=== PATIENT | male | born 1945 | race Caucasian/White ===

== ENCOUNTER 2017-12-06 21:18 | Emergency (ER) | payer OTHER ==
[2017-12-06] MEDS ORDERED: ACETAMINOPHEN 500 MG TAB ONE (23:14)
[2017-12-06] MEDS ORDERED: NA CHLORIDE 0.9% 1,000 ML ONE (23:14)
[2017-12-06 23:18] LABS: Absolute Lymphocytes (CBC) 0.8 K/uL (0.7-4.9); Absolute Monocytes 0.8 K/uL (0.1-1.3); Absolute Neutrophil 5.4 K/uL (1.8-8.0); Basophils % 0.4 % (0-1.3); Eosinophils % 0.1 % (0-4.4); Hematocrit 41.5 % (39.6-49.0); Lymphocytes % 11.4 % (15.3-44.8); MCH 32.3 pg (27.0-35.0); MCV 94.3 fL (80-100); MPV 8.5 fL (7.6-11.3)
[2017-12-06 23:23] LABS: Urine Blood 2+ (NEG); Urine Glucose NEGATIVE (NEG); Urine Protein TRACE (NEG); Urine Specific Gravity 1.015 (1.005-1.030); Urine pH 5.5 (5.0-7.0)
[2017-12-06 23:32] LABS: Potassium 3.6 mEq/L (3.6-5.0)
[2017-12-06 23:39] LABS: Albumin 3.9 g/dL (3.2-5.5); Bilirubin Direct 0.5 mg/dL (0-0.2)
[2017-12-07 00:05] LABS: Urine Bacteria <20 /HPF (NONE SEEN); Urine Culture Reflex Order REFLEXED; Urine Mucus 1+ /HPF (NONE SEEN); Urine RBC <5 /HPF (NONE SEEN)
[2017-12-07] MEDS ORDERED: CEFTRIAXONE/SWI 1gm 1 GM/10 ML SYR ONE (02:54)
--- NOTE | 2017-12-07 02:58 | EDPHYS ---
Physician Documentation [facility] Name: Paulino Ragsdale Age: 72 yrs Sex: Male : 1945 Arrival Date: 12/06/2017 Time: 21:25 Bed 20 Private MD: ED Physician Camilo Proctor HPI: 12/06 23:00 This 72 yrs old Male presents to ER via Ambulatory with complaints of Flank pm1 Pain, Fever. 23:00 The patient complains of pain in the left low back and right low back. The pain does pm1 not radiate. Onset: The symptoms/episode began/occurred 4 day(s) ago. Modifying factors: The symptoms are alleviated by nothing. the symptoms are aggravated by nothing. Associated signs and symptoms: Pertinent positives: fever, headache, Pertinent negatives: nausea, vomiting. Severity of pain: in the emergency department the pain is actually worse. The patient has experienced similar episodes in the past, a few times. The patient has not recently seen a physician. patient with bilateral flank pain and low grade fevers. symptoms feel like prior urinary tract infections. Patient with headache present when his fevers return after administration of antipyretics. No nausea, vomiting, diarrhea. No cough, sore throat, or earache. Historical: - Allergies: 22:21 No Known Allergies; jd3 - Home Meds: 22:21 atorvastatin oral oral [Active]; Plavix Oral [Active]; losartan oral oral [Active]; jd3 aspirin 81 mg Oral chew 1 tab once daily [Active]; - PMHx: 22:21 CVA; prostate cancer; High Cholesterol; Hypertension; jd3 - PSHx: 22:21 Prostate; Appendectomy; right hip surgery; jd3 - Immunization history:: Adult Immunizations up to date. - Social history:: Smoking status: Patient/guardian denies using tobacco, the patient reports quitting approximately 17 years ago. - Ebola Screening: : No symptoms or risks identified at this time. ROS: 23:00 Eyes: Negative for injury, pain, redness, and discharge, ENT: Negative for injury, pm1 pain, and discharge, Neck: Negative for injury, pain, and swelling, Cardiovascular: Negative for chest pain, palpitations, and edema, Respiratory: Negative for shortness of breath, cough, wheezing, and pleuritic chest pain, Abdomen/GI: Negative for abdominal pain, nausea, vomiting, diarrhea, and constipation. 23:00 : Negative for injury, bleeding, discharge, and swelling, MS/Extremity: Negative for injury and deformity, Skin: Negative for injury, rash, and discoloration. 23:00 Constitutional: Positive for fever, Negative for poor PO intake. 23:00 Back: Positive for flank pain, bilaterally, Negative for radiated pain. Exam: 23:00 Constitutional: This is a well developed, well nourished patient who is awake, alert, pm1 and in no acute distress. Head/Face: Normocephalic, atraumatic. Eyes: Pupils equal round and reactive to light, extra-ocular motions intact. Lids and lashes normal. Conjunctiva and sclera are non-icteric and not injected. Cornea within normal limits. Periorbital areas with no swelling, redness, or edema. ENT: Nares patent. No nasal discharge, no septal abnormalities noted. Tympanic membranes are normal and external auditory canals are clear. Oropharynx with no redness, swelling, or masses, exudates, or evidence of obstruction, uvula midline. Mucous membranes moist. Neck: Trachea midline, no thyromegaly or masses palpated, and no cervical lymphadenopathy. Supple, full range of motion without nuchal rigidity, or vertebral point tenderness. No Meningismus. Chest/axilla: Normal chest wall appearance and motion. Nontender with no deformity. No lesions are appreciated. Cardiovascular: Regular rate and rhythm with a normal S1 and S2. No gallops, murmurs, or rubs. No pulse deficits. Respiratory: Lungs have equal breath sounds bilaterally, clear to auscultation and percussion. No rales, rhonchi or wheezes noted. No increased work of breathing, no retractions or nasal flaring. Abdomen/GI: Soft, non-tender, with normal bowel sounds. No distension or tympany. No guarding or rebound. No evidence of tenderness throughout. Skin: Warm, dry with normal turgor. Normal color with no rashes, no lesions, and no evidence of cellulitis. MS/ Extremity: Pulses equal, no cyanosis. Neurovascular intact. Full, normal range of motion. 23:00 Back: pain, that is mild, of the left low back and right low back, vertebral tenderness, is not appreciated. 23:00 Neuro: Orientation: is normal, Mentation: is normal, Cranial nerves: CN II- XII are normal as tested, Cerebellar function: Motor: moves all fours, strength is 5/5 in all extremities, Sensation: is normal, no obvious gross deficits. Vital Signs: 22:21 BP 169 / 75; Pulse 100; Resp 20 S; Temp 100.9(O); Pulse Ox 95% on R/A; Weight 105.23 kg jd3 (R); Height 5 ft. 7 in. (170.18 cm) (R); Pain 3/10; 23:52 BP 158 / 74; Pulse 96; Resp 18 S; Temp 101.2(O); Pulse Ox 95% on R/A; Pain 0/10; jd3 12/07 00:33 BP 164 / 74; Pulse 90; Resp 18 S; Pulse Ox 95% on R/A; jd3 00:54 BP 164 / 74; Pulse 90; Resp 18 S; Temp 100.3(O); Pulse Ox 95% on R/A; jd3 02:22 BP 151 / 67; Pulse 87; Resp 17 S; Pulse Ox 95% on R/A; d3 12/06 22:21 Body Mass Index 36.34 (105.23 kg, 170.18 cm) jd3 MDM: 12/06 22:49 Patient medically screened. pm1 12/07 02:54 Data reviewed: vital signs. Data interpreted: Pulse oximetry: on room air is 95 %. pm1 Interpretation: normal. Counseling: I had a detailed discussion with the patient and/or guardian regarding: the historical points, exam findings, and any diagnostic results supporting the discharge/admit diagnosis, lab results, radiology results, the need for outpatient follow up, to return to the emergency department if symptoms worsen or persist or if there are any questions or concerns that arise at home. 02:54 ED course: pending urine culture in 2 days. pm1 02:59 ED course: Patient reports feeling the same way that he had a prior urinary tract pm1 infection. Flank pain with fever and UTI only diagnosed when the culture came back. Patient would like antibiotic therapy. will discharge patient home with Augmentin after administering Rocephin and pending urine cutlrue. 12/06 22:50 Order name: Basic Metabolic Panel; Complete Time: 02:04 pm1 12/06 22:50 Order name: CBC with Diff; Complete Time: 02:04 pm1 12/06 22:50 Order name: Creatinine for Radiology; Complete Time: 02:04 pm1 12/06 22:50 Order name: Hepatic Function; Complete Time: 02:04 pm1 12/06 22:50 Order name: Lipase; Complete Time: 02:04 pm1 12/06 22:50 Order name: Urine Microscopic Only pm1 12/06 22:50 Order name: CT Head Brain wo Cont pm1 12/06 22:50 Order name: IV Saline Lock; Complete Time: 23:11 pm1 12/06 22:50 Order name: CT Abd/Pelvis - W/Contrast 1 12/06 23:17 Order name: Urine Dipstick--Ancillary (enter results); Complete Time: 02:04 2 12/07 00:11 Order name: Urine Culture [facility] 12/06 22:50 Order name: Labs collected and sent; Complete Time: 23:11 pm1 12/06 22:50 Order name: Urine Dipstick-Ancillary (obtain specimen); Complete Time: 23:19 pm1 Administered Medications: 12/06 23:19 Drug: Tylenol 1000 mg Route: PO; [facility] 12/07 03:17 Follow up: Response: No adverse reaction; Temperature is decreased [facility] 12/06 23:19 Drug: NS 0.9% 1000 ml Route: IV; Rate: 1000 ml; Site: right antecubital; [facility] 12/07 03:17 Follow up: Response: No adverse reaction; IV Status: Completed infusion; IV Intake: jd3 1000ml 03:03 Drug: Rocephin 1 grams Route: IV; Rate: calculated rate; Site: right antecubital; [facility] 03:16 Follow up: Response: No adverse reaction; IV Status: Completed infusion j Disposition: 12/07/17 02:57 Discharged to Home. Impression: Urinary tract infection, site not specified. - Condition is Stable. - Discharge Instructions: Urinary Tract Infection, Antibiotic Medication. - Prescriptions for Augmentin 875- 125 mg Oral Tablet - take 1 tablet by ORAL route every 12 hours for 10 days; 20 tablet. - Medication Reconciliation Form, Thank You Letter, Antibiotic Education form. - Follow up: Emergency Department; When: As needed; Reason: Worsening of condition. Follow up: Private Physician; When: 2 - 3 days; Reason: Recheck today's complaints, Continuance of care, Re-evaluation by your physician. - Problem is new. - Symptoms have improved. Addendum: 12/09/2017 09:30 Co-signature as Attending Physician, Camilo Proctor MD I agree with the assessment and c walker plan of care. Signatures: Dispatcher [employer] EDWV Camilo Proctor MD MD cha Marinas, Patrick, GUARD DRIVER GUARD DRIVER pm1 Alek Portillo, RN RN jd3 Corrections: (The following items were deleted from the chart) 12/07 03:17 02:57 12/07/2017 02:57 Discharged to Home. Impression: Urinary tract infection, site jd3 not specified. Condition is Stable. Forms are Medication Reconciliation Form, Thank You Letter, Antibiotic Education, Prescription Opioid Use. Follow up: Emergency Department; When: As needed; Reason: Worsening of condition. Follow up: Private Physician; When: 2 - 3 days; Reason: Recheck today's complaints, Continuance of care, Re-evaluation by your physician. Problem is new. Symptoms have improved. pm1
--- NOTE | 2017-12-07 02:58 | ER ---
Nurse's Notes [facility] Name: Paulino Ragsdale Age: 72 yrs Sex: Male : 1945 Arrival Date: 12/06/2017 Time: 21:25 Bed 20 Private MD: Diagnosis: Urinary tract infection, site not specified Presentation: 12/06 22:08 Presenting complaint: Patient states: "I have been having fever since Friday jd3 accompanied by a cough and migraines. I am worried about the migraines because they triggered my previous stroke. I just haven't been able to shake this fever that has also been given meets sweats at night and a cough. I also think I might have a UTI or kidney problem because I am having some blood in my urine.". Transition of care: patient was not received from another setting of care. Onset of symptoms was December 03, 2017. Risk Assessment: Do you want to hurt yourself or someone else? Patient reports no desire to harm self or others. Initial Sepsis Screen: Does the patient meet any 2 criteria? No. Patient's initial sepsis screen is negative. Does the patient have a suspected source of infection? No. Patient's initial sepsis screen is negative. Care prior to arrival: None. 22:08 Method Of Arrival: Ambulatory jd3 22:08 Acuity: DEBBIE 3 jd3 Historical: - Allergies: 22:21 No Known Allergies; jd3 - Home Meds: 22:21 atorvastatin oral oral [Active]; Plavix Oral [Active]; losartan oral oral [Active]; jd3 aspirin 81 mg Oral chew 1 tab once daily [Active]; - PMHx: 22:21 CVA; prostate cancer; High Cholesterol; Hypertension; jd3 - PSHx: 22:21 Prostate; Appendectomy; right hip surgery; jd3 - Immunization history:: Adult Immunizations up to date. - Social history:: Smoking status: Patient/guardian denies using tobacco, the patient reports quitting approximately 17 years ago. - Ebola Screening: : No symptoms or risks identified at this time. Screenin:25 Abuse screen: Denies threats or abuse. Nutritional screening: No deficits noted. jd3 Tuberculosis screening: No symptoms or risk factors identified. Fall Risk Ambulatory Aid- Crutches/Cane/Walker (15 pts). Gait- Weak (10 pts.). Mental Status- Oriented to own ability (0 pts). Total Pedroza Fall Scale indicates Low Risk Score (25-44 pts). Fall prevention measures have been instituted. Side Rails Up X 2 Placed close to Nursing Station Frequent Obs/Assesments occuring Family Present and informed to notify staff if they need to leave bedside. Assessment: 22:22 General: Appears in no apparent distress. uncomfortable, Behavior is calm, cooperative, jd3 appropriate for age. Pain: Complains of pain in head Pain currently is 3 out of 10 on a pain scale. Quality of pain is described as aching, Is intermittent, Also complains of when pain is gets worse pt reports shortness of breath. Neuro: Level of Consciousness is awake, alert, obeys commands, Oriented to person, place, time, situation. Cardiovascular: Heart tones S1 S2 present Capillary refill < 3 seconds Patient's skin is warm and dry. Respiratory: Airway is patent Respiratory effort is even, unlabored, Respiratory pattern is regular, symmetrical, Breath sounds are clear bilaterally. GI: Abdomen is round Bowel sounds present X 4 quads. Abd is soft and non tender X 4 quads. Reports lower abdominal pain, Patient currently denies constipation, diarrhea, nausea, vomiting. : No signs and/or symptoms were reported regarding the genitourinary system. EENT: No signs and/or symptoms were reported regarding the EENT system. Derm: Skin is intact, Skin is dry, Skin is normal, Skin temperature is warm. Musculoskeletal: Circulation, motion, and sensation intact. Range of motion: intact in all extremities. 23:17 Reassessment: Patient appears in no apparent distress at this time. Patient and/or jd3 family updated on plan of care and expected duration. Pain level reassessed. Patient is alert, oriented x 3, equal unlabored respirations, skin warm/dry/pink. CT notified of pt finishing contast. 23:52 Reassessment: Patient appears in no apparent distress at this time. Patient and/or jd3 family updated on plan of care and expected duration. Pain level reassessed. Patient is alert, oriented x 3, equal unlabored respirations, skin warm/dry/pink. Patient states feeling better. 12/07 00:56 Reassessment: Patient appears in no apparent distress at this time. Patient and/or jd3 family updated on plan of care and expected duration. Pain level reassessed. Patient is alert, oriented x 3, equal unlabored respirations, skin warm/dry/pink. 01:45 Reassessment: Patient appears in no apparent distress at this time. Patient and/or jd3 family updated on plan of care and expected duration. Pain level reassessed. Patient is alert, oriented x 3, equal unlabored respirations, skin warm/dry/pink. 02:23 Reassessment: Patient appears in no apparent distress at this time. Patient and/or jd3 family updated on plan of care and expected duration. Pain level reassessed. Patient is alert, oriented x 3, equal unlabored respirations, skin warm/dry/pink. 03:15 Reassessment: Patient appears in no apparent distress at this time. Patient and/or jd3 family updated on plan of care and expected duration. Pain level reassessed. Patient is alert, oriented x 3, equal unlabored respirations, skin warm/dry/pink. pt reported understanding of discharge instructions, even and steady gait upon discharge. Vital Signs: 12/06 22:21 BP 169 / 75; Pulse 100; Resp 20 S; Temp 100.9(O); Pulse Ox 95% on R/A; Weight 105.23 kg j (R); Height 5 ft. 7 in. (170.18 cm) (R); Pain 3/10; 23:52 BP 158 / 74; Pulse 96; Resp 18 S; Temp 101.2(O); Pulse Ox 95% on R/A; Pain 0/10; jd3 12/07 00:33 BP 164 / 74; Pulse 90; Resp 18 S; Pulse Ox 95% on R/A; jd3 00:54 BP 164 / 74; Pulse 90; Resp 18 S; Temp 100.3(O); Pulse Ox 95% on R/A; jd3 02:22 BP 151 / 67; Pulse 87; Resp 17 S; Pulse Ox 95% on R/A; d3 12/06 22:21 Body Mass Index 36.34 (105.23 kg, 170.18 cm) [facility] ED Course: 12/06 21:25 Patient arrived in ED. ds1 22:08 Alek Portillo, XIANG is Primary Nurse. jd3 22:13 Triage completed. jd3 22:22 Arm band placed on. jd3 22:26 Patient has correct armband on for positive identification. Bed in low position. Call jd3 light in reach. Side rails up X 1. Adult w/ patient. 22:31 [place] NP is PHCP. pm1 22:31 Camilo Proctor MD is Attending Physician. pm1 23:05 Inserted saline lock: 20 gauge in right antecubital area, using aseptic technique. jd3 Blood collected. 12/07 01:29 CT Head Brain wo Cont In Process Unspecified. EDMS 01:29 CT Abd/Pelvis - W/Contrast In Process Unspecified. EDMS 03:14 No provider procedures requiring assistance completed. IV discontinued, intact, jd3 bleeding controlled, No redness/swelling at site. Pressure dressing applied. Administered Medications: 12/06 23:19 Drug: Tylenol 1000 mg Route: PO; jd3 12/07 03:17 Follow up: Response: No adverse reaction; Temperature is decreased jd3 12/06 23:19 Drug: NS 0.9% 1000 ml Route: IV; Rate: 1000 ml; Site: right antecubital; jd3 12/07 03:17 Follow up: Response: No adverse reaction; IV Status: Completed infusion; IV Intake: jd3 1000ml 03:03 Drug: Rocephin 1 grams Route: IV; Rate: calculated rate; Site: right antecubital; jd3 03:16 Follow up: Response: No adverse reaction; IV Status: Completed infusion jd3 Intake: 03:17 IV: 1000ml; Total: 1000ml. jd3 Outcome: 02:57 Discharge ordered by MD. pm1 03:14 Discharged to home ambulatory, with family. jd3 03:14 Condition: stable 03:14 Discharge instructions given to patient, family, Instructed on discharge instructions, follow up and referral plans. medication usage, Demonstrated understanding of instructions, follow-up care, medications, Prescriptions given X 1. 03:17 Patient left the ED. jd3 Addendum: 12/10/2017 07:24 Addendum: Culture Results: Positive urine culture. No further action required. Bacteria i w sensitive to prescribed antibiotic. Signatures: Dispatcher [employer] EDRI TrinidadShannon ds1 Cass Concepcion RN RN iw Lorenzo Park NP [employer] pm1 Alek Portillo RN RN jd3 Corrections: (The following items were deleted from the chart) 12/06 22:25 22:08 Presenting complaint: Patient states: "I have been having fever since Friday jd3 accompanied by a cough and migraines. I am worried about the migraines because they triggered my previous stroke. I just haven't been able to shake this fever that has also been given meets sweats at night and a cough." jd3 23:18 23:17 Reassessment: CT notified of pt finishing contast. jd3 jd3 23:54 23:52 BP 158 / 74; Pulse 96bpm; Resp 18bpm; Spontaneous; Pulse Ox 95% RA; Pain 0/10; jd3jd3 12/07 00:55 00:54 BP 106 / 71; Pulse 80bpm; Resp 16bpm; Spontaneous; Pulse Ox 97% RA; jd3 jd3 00:56 00:54 BP 106 / 71; Pulse 80bpm; Resp 16bpm; Spontaneous; Pulse Ox 97% RA; Temp 100.3F; jd3 jd3
--- NOTE | 2017-12-07 10:43 | RAD REPORT ---
EXAM DESCRIPTION: CT - Head Brain Wo Cont - 12/07/2017 3:39 am CLINICAL HISTORY: Fever, headache A preliminary written report was provided at the time of the study, and the report was reviewed prio r to final dictation. COMPARISON: CT head June 2015 TECHNIQUE: Axial 5 mm thick images of the head were obtained without IV contrast. All CT scans are performed using dose optimization technique as appropriate and may include automated exposure control or mA/KV adjustment according to patient size. FINDINGS: No intracranial hemorrhage, mass, edema or shift of mid-line structures. No acute cortical based infarction. No cortical edema or sulcal effacement. Atrophy and chronic ischemic changes are m inimal. No abnormal extra-axial fluid collections. Ventricles are in proportion to volume loss. Mastoid air cells and visualized portions of the paranasal sinuses are clear. No acute bony findings. IMPRESSION: No acute intracranial finding. Minimal atrophy and chronic ischemic change similar to comparison.
--- NOTE | 2017-12-07 10:48 | RAD REPORT ---
EXAM DESCRIPTION: CT - Abdomen Pelvis W Contrast - 12/07/2017 3:40 am CLINICAL HISTORY: Cough, fever, abdominal pain, history of prostate cancer, appendectomy and right h ip surgery A preliminary written report was provided at the time of the study, and the report was reviewed prio r to final dictation. COMPARISON: None. TECHNIQUE: Biphasic, helical CT imaging of the abdomen and pelvis was performed following 100 ml non -ionic IV contrast. Oral contrast was given. All CT scans are performed using dose optimization technique as appropriate and may include automated exposure control or mA/KV adjustment according to patient size. FINDINGS: No suspicious findings in the lung bases. Liver is normal in size. There is a mild fatty infiltration pattern to the liver with no focal liver lesions identifiable. No splenomegaly or focal splenic finding. Pancreas and peripancreatic tissues u nremarkable. Several punctate gallstones layer in the dependent portion of the gallbladder near the n tatyana. No acute gallbladder or biliary tree finding. Symmetric renal function is seen with no hydronephrosis or suspicious renal mass. No pyelonephritis o r acute renal parenchymal process. Patient has a 14 centimeter simple cyst lateral right kidney. Ther e is a 4.5 centimeter cyst lower pole left kidney. No suspicious characteristics. No suspicious adren al finding. Urinary bladder is unremarkable. No dilated bowel loops or bowel wall thickening. Patient has prominent sigmoid diverticulosis but no acute diverticulitis. Mild mucosal level inflammatory changes can be occult to CT imaging. No free ai r, free fluid or inflammatory stranding. No mass or bulky lymphadenopathy. Patient has a small 3.5 c entimeter hernia with a 12 millimeter neck. Fat extends into each inguinal canal. No adrenal abnormal ity. No suspicious bony findings. IMPRESSION: No obstruction, free air or surgically emergent finding. Prominent sigmoid diverticulosis without diverticulitis. Cholelithiasis without evidence for acute gallbladder or biliary tree finding. Incidental note made of mild diffuse fatty infiltration of the liver and large bilateral renal cysts.
== END 2017-12-07 03:17 | disposition home or self-care (01) ==
LOC: ER 21:18
DX: N39.0 Urinary tract infection, site not specified (principal); I10 Essential (primary) hypertension; E78.00 Pure hypercholesterolemia, unspecified; Z86.73 Personal history of transient ischemic attack (TIA), and cerebral infarction without residual deficits; Z85.46 Personal history of malignant neoplasm of prostate; Z79.01 Long term (current) use of anticoagulants; Z79.82 Long term (current) use of aspirin
CPT/HCPCS: 36415; 70450; 74177; 80048; 80076; 83690; 85025; 87077; 87086; 87088; 87186; 96361; 96374; 99284; J0696; J7030; Q9967; 81003; 81015